=== PATIENT | female | born 1990 | race Two or more races ===

== ENCOUNTER 2019-12-19 01:30 | Observation (INO) | payer MEDICAID ==
[~2019-12-19] VITALS: Ht 157.5 cm; Wt 55.8 kg
[2019-12-19] MEDS ORDERED: PREN-96 PO (01:50)
== END 2019-12-19 02:08 | disposition home or self-care (01) ==
LOC: LDRP 01:30
PROVIDERS: ADMIT Obstetrics & Gynecology; ATTEND Obstetrics & Gynecology
DX: O62.9 Abnormality of forces of labor, unspecified (principal); Z3A.39 39 weeks gestation of pregnancy
CPT/HCPCS: 59025; 81002; G0378

== ENCOUNTER 2019-12-20 07:39 | Inpatient (IN) | payer MEDICAID ==
[~2019-12-20] VITALS: Ht 157.5 cm; Wt 55.8 kg
[~2019-12-20 07:39] MED LIST: PREN-96 PO
[2019-12-20] MEDS ORDERED: PHISODERM TOP SOLN 240ML BTL TOP PRN (08:15)
[2019-12-20] MEDS ORDERED: LIDOCAINE 2%HCL (LOCAL ANESTH.) INJ 20ML MDV IJ PRN (08:15)
[2019-12-20] MEDS ORDERED: DERMOPLAST 60ML BOTTLE TOP PRN (08:15)
[2019-12-20] MEDS ORDERED: LACT. RINGERS/OXYTOCIN 20UNITS 1,000 ML IV PRN ×2 (08:45)
[2019-12-20] MEDS: WITCH HAZEL-GLYCERIN PAD TOP PRN (09:16)
[2019-12-20] MEDS: LACTATED RINGER'S 1,000 ML IV SCH ×2 (09:16→11:13)
[2019-12-20 09:35] LABS: Basophils # (auto) 0 10 ^3/uL (0-0.2); Basophils % (auto) 0.1 % (0.0-2.0); Eosinophils # (auto) 0 10 ^3/uL (0-0.8); Eosinophils % (auto) 0.2 % (0.0-7.0); Hemoglobin 12.2 g/dL (12.2-16.2); Lymphocytes # (auto) 1.7 10 ^3/uL (0.4-5.4); Lymphocytes % (auto) 15.9 % (10.0-50.0); Mean Corpuscular Hemoglobin 32.9 pg (28.0-32.0); Mean Corpuscular Hgb Conc. 33.9 g/dL (32.0-36.0); Mean Corpuscular Volume 96.9 fL (80.0-100.0); Monocytes # (auto) 0.8 10 ^3/uL (0-1.3); Neutrophils # (auto) 8.3 10 ^3/uL (1.6-8.6); Neutrophils % (auto) 76.8 % (37.0-80.0); Platelet Count (auto) 203 10^3/uL (140-450); Red Blood Cells 3.72 10^6/uL (4.0-5.20); White Blood Cell 10.8 10^3/uL (4.4-10.8)
[2019-12-20 09:47] LABS: Urine Amorphous Crystal FEW /hpf (None Seen); Urine Bacteria NONE SEEN /hpf (None Seen); Urine Blood TRACE /uL (Negative); Urine Specific Gravity 1.011 (1.001-1.035); Urine WBC 2 /hpf (0 - 5)
[2019-12-20 09:51] LABS: INR 0.92 (0.9-1.15); Partial Thromboplastin Time 29.5 sec (23.0-31.2)
[2019-12-20 10:02] LABS: Potassium 3.8 mmol/L (3.5-5.1)
[2019-12-20 10:08] LABS: Barbiturate Scree,Urine NEGATIVE (NEGATIVE); Cannabinoid Screen, Urine NEGATIVE (NEGATIVE)
[2019-12-20 10:12] LABS: Alcohol, Urine < 3.0 mg/dL (0-10); Amphetamine Screen, Urine NEGATIVE (NEGATIVE); Benzodiazephine Screen, Urine NEGATIVE (NEGATIVE); Cocaine Screen, Urine NEGATIVE (NEGATIVE); Opiate Scree,Urine NEGATIVE (NEGATIVE); Phencyclidine Screen, Urine NEGATIVE (NEGATIVE)
[2019-12-20 10:14] LABS: Albumin 2.7 g/dL (3.4-5.0); BUN/Creatinine Ratio 18.2; Bilirubin, Total 0.3 mg/dL (0.2-1.0); Calcium 8.5 mg/dL (8.5-10.1); Total Protein 6.6 g/dL (6.4-8.2)
[2019-12-20] MEDS ORDERED: ePHEDrine SULFATE 50 MG/ML AMP IV PRN (10:15)
[2019-12-20] MEDS ORDERED: ROPIVACAINE HCL 100 ML EPI SCH (10:15)
[2019-12-20] MEDS ORDERED: LACTATED RINGER'S 1,000 ML IV ONE (10:15)
[2019-12-20] MEDS ORDERED: fentaNYL CITRATE 100 MCG/2 ML VL EPI ONE (10:15)
[2019-12-20] MEDS ORDERED: NALOXONE HCL 0.4 MG/ML VIAL IV PRN (10:15)
[2019-12-20] MEDS ORDERED: LIDOCAINE HCL 2 %PF INJ 10ML AMP IJ ONE (10:15)
[2019-12-20] MEDS ORDERED: LACT. RINGERS/OXYTOCIN 20UNITS 1,000 ML IV SCH (14:45)
[2019-12-20 18:00] VITALS: BP 98/63
--- NOTE | 2019-12-20 19:45 | NUR ---
Ambulation: POC discussed with patient, patient verbalized understanding. Applied non-skid socks bilaterally. Patient OOB with standby assistance by RN. Patient ambulated to bathroom with steady gait. Patient able to void 500ml of clear yellow urine without difficulty. Pericare teaching provided with returned demonstration by patient. Clean gown provided and bed linen changed. Patient ambulated back to bed with steady gait and no distress noted.
[2019-12-20 23:28] VITALS: BP 92/54
[2019-12-21] MEDS: IBUPROFEN 600 MG TAB PO PRN ×2 (01:37→11:07)
[2019-12-21 03:21] VITALS: BP 98/53
[2019-12-21 05:06] LABS: RPR Non Reactive (Non Reactive)
[2019-12-21 07:13] VITALS: BP 103/70
[2019-12-21 11:00] VITALS: BP 102/55
[2019-12-21 15:00] VITALS: BP 119/70
--- NOTE | 2019-12-21 16:47 | NUR ---
Discharge: Discharge instructions given as ordered. Pt encouraged to follow up with MACHINE ENGRAVER as instructed. All questions and concerns addressed. Patient verbalized understanding. Medication reconciliation completed and copy given to patient. Patient encouraged to prepare to depart unit.
--- NOTE | 2019-12-21 16:55 | NUR ---
IV removal IV DC'd in left wrist with clean sterile technique, catheter fully intact. Pressure dressing applied to site. Patient tolerated well. NOTE:
[2019-12-21] MEDS: WITCH HAZEL-GLYCERIN PAD TOP PRN (17:58)
--- NOTE | 2019-12-21 18:09 | NUR ---
Discharge: Patient taken to vehicle via ambulatory with all personal belongings, accompanied by staff and family member. No distress noted at time of departure, no adverse changes in status since initial assessment.
== END 2019-12-21 18:09 | disposition home or self-care (01) | DRG 560 ==
LOC: LDRP 07:39 → OBSVTOIN 07:39 → LDRP 08:05
PROVIDERS: ADMIT Specialist; ATTEND Specialist
PROC: 10E0XZZ Delivery of Products of Conception, External Approach (ICD-10-PCS; principal; 2019-12-20)
PROC: 10H07YZ Insertion of Other Device into Products of Conception, Via Natural or Artificial Opening (ICD-10-PCS; 2019-12-20)
PROC: 0KQM0ZZ Repair Perineum Muscle, Open Approach (ICD-10-PCS; 2019-12-20)
PROC: 3E0R3BZ Introduction of Anesthetic Agent into Spinal Canal, Percutaneous Approach (ICD-10-PCS; 2019-12-20)
PROC: 00HU33Z Insertion of Infusion Device into Spinal Canal, Percutaneous Approach (ICD-10-PCS; 2019-12-20)
PROC: 10907ZC Drainage of Amniotic Fluid, Therapeutic from Products of Conception, Via Natural or Artificial Opening (ICD-10-PCS; 2019-12-20)
DX: O77.0 Labor and delivery complicated by meconium in amniotic fluid (principal); O70.1 Second degree perineal laceration during delivery; Z3A.39 39 weeks gestation of pregnancy; Z37.0 Single live birth; Z20.828 Contact with and (suspected) exposure to other viral communicable diseases
CPT/HCPCS: 36415; 59025; 59409; 62282; 80053; 80307; 81001; 81002; 85025; 85610; 85730; 86592; 86850; 86870; 86900; 86901; 87426; 94760; 96360; 96361; 96365; 96366; 96374; 96375; G0378; J2590